=== PATIENT | male | born 2000 | race Caucasian/White ===

== ENCOUNTER 2023-03-15 23:37 | Emergency (ER) | payer OTHER, SELFPAY ==
[2023-03-15 23:53] VITALS: BP 156/94; PULSE 94; RESP 16; TEMP 36.7; O2SAT 100; BMI 20.5
[2023-03-16] VITALS: O2SAT 100
--- NOTE | 2023-03-16 00:20 | XR_ITS ---
The [address] [address] Patient Name: MECHELLE VEGA MRN: [id number] date: 2000 Sex: M Assigned Patient Location: ER Current Patient Location: ER Accession/Order Number: [id number] Exam Date: 03/16/2023 00:29 Report Date: 03/16/2023 01:19 At the request of: HEAVEN MOSLEY Procedure: XR ribs RT min 3V w CXR1V PLAIN FILM OF THE RIBS RIGHT HISTORY: Right upper rib pain in a 22-year-old male. Patient states it hurts to inhale. Pain is underlying the right clavicle. COMPARISON: Plain film of the right clavicle performed the same day. TECHNIQUE: 1 frontal view of the chest and 4 views of the RIGHT side of the ribs are submitted for review. FINDINGS: CXR: Lungs: No acute infiltrate. No pneumothorax. Heart: Normal. Pulmonary vessels: Normal. Costophrenic angles: Normal. Ribs: Allowing for limitations of underlying lung markings, and overlying bowel gas: Bone mineralization within expected limits of normal. Osseous: No displaced rib fractures Soft tissues: Normal. IMPRESSION: No displaced rib fracture. If symptoms continue, outpatient CT may help better delineate. Electronically authenticated by: PHYLLIS LING Date: 03/16/2023 01:19
--- NOTE | 2023-03-16 00:21 | ED_ITS ---
HPI - General Adult General Chief complaint: Chest Pain Stated complaint: COLLAR BONE INJURY Time Seen by Provider: 03/16/23 00:20 Source: patient Mode of arrival: walk-in Limitations: no limitations History of Present Illness HPI narrative: playing around with a friend one week ago who landed on his right upper chest. continues to have pain but admits he also has been bailing hay. not short of breath. Denies other injury. No nausea Onset (ago): week(s) Related Data Home Medications Medication Instructions Recorded Confirmed No Known Home Medications 03/16/23 03/16/23 Allergies Allergy/AdvReac Type Severity Reaction Status Date / Time No Known Drug Allergies Allergy Verified 03/16/23 00:01 Review of Systems ROS Status of ROS 10 or more systems reviewed and unremarkable except as noted in history and below Cardiovascular Reports: chest pain PFSH PFSH Social History Smoking status: Current every day smoker Exam Constitutional: Vital Signs - 24 hr 03/15/23 23:53 03/16/23 00:00 Temperature 98.1 F Pulse Rate [Monito r] 94 H Respiratory Rate 16 Blood Pressure [Le ft Arm] 156/94 H Pulse Oximetry 100 100 Oxygen Delivery Me thod Room Air Room Air Common normals: no apparent distress HENMT: Common normals: normocephalic and head/scalp atraumatic Eye: Common normals: EOMs intact bilaterally and conjunctivae normal Neck & C-Spine: Common normals: full ROM Chest: Other: mild right upper chest wall tenderness Respiratory: Common normals: normal respiratory effort and clear to auscultation bilaterally Cardio: Common normals: regular rate, regular rhythm, S1 normal heart sound and S2 normal heart sound GI: Common normals: Normal to inspection, nondistended, normoactive bowel sounds present, soft to palpation and non-tender Back & Pelvis: Common normals: no CVA tenderness, thoracic and lumbar spine normal to inspection and no thoracic nor lumbar tenderness Extremity: Common normals: normal to inspection and no joint enlargement Neuro: Common normals: oriented x3, CN's II-XII intact bilaterally and gait normal Psych: Common normals: mental status grossly normal Skin: Common normals: no rashes or lesions noted, no wounds, skin turgor normal and no jaundice Course Vital Signs Vital signs: Vital Signs Temperature 98.1 F 03/15/23 23:53 Pulse Rate 94 H 03/15/23 23:53 Respiratory Rate 16 03/15/23 23:53 Blood Pressure 156/94 H 03/15/23 23:53 Pulse Oximetry 100 03/15/23 23:53 Oxygen Delivery Method Room Air 03/15/23 23:53 Temperature 98.1 F 03/15/23 23:53 Pulse Rate 94 H 03/15/23 23:53 Respiratory Rate 16 03/15/23 23:53 Blood Pressure 156/94 H 03/15/23 23:53 Pulse Oximetry 100 03/16/23 00:00 Oxygen Delivery Method Room Air 03/16/23 00:00 Medical Decision Making MDM Narrative Medical decision making narrative: patient presents one week afte he and a friend were playing around and the frie nd landed on his right upper chest. continued pain but he has also been bailing hay. exam with mild tenderness of the right upper chest and clavicle. No deformity. Xray of the right clavicle and ribs neg. patient informed of the diagnosis of bruised ribs and discharged home to follow up with his doctor Discharge Plan Discharge Chief Complaint: Chest Pain Clinical Impression: Bruised ribs Mode of Transportation: Private Vehicle Prescriptions / Home Meds: No Action No Known Home Medications Instructions: Chest Wall Pain (ED) Stand Alone Forms: Portal Instructions Follow Up Appointments: follow up with the family doctor next week
--- NOTE | 2023-03-16 00:22 | XR_ITS ---
[address] [address] Patient Name: MECHELLE VEGA MRN: [id number] date: 2000 Sex: M Assigned Patient Location: ER Current Patient Location: ED.MAIN Accession/Order Number: [id number] Exam Date: 03/16/2023 00:29 Report Date: 03/16/2023 01:10 At the request of: HEAVEN MOSLEY Procedure: XR clavicle RT PLAIN FILM OF THE CLAVICLE RIGHT HISTORY: Pain TECHNIQUE: 2 views of the clavicle are submitted for review. COMPARISON: None. FINDINGS: There is no evidence for acute fracture.. Bone mineralization is within normal limits. Joint spaces are maintained. Soft tissues are grossly unremarkable. IMPRESSION: Unremarkable for acute fracture. Electronically authenticated by: PHYLLIS LING Date: 03/16/2023 01:10
== END 2023-03-16 02:00 | disposition home or self-care (01) ==
PROVIDERS: Emergency Provider Internal Medicine
DX: S20.211A Contusion of right front wall of thorax, initial encounter (principal); W50.0XXA Accidental hit or strike by another person, initial encounter
CPT/HCPCS: 71101; 73000; 99284